=== PATIENT | male | born 1970 | race Two or more races ===

== ENCOUNTER 2024-04-22 02:26 | Emergency (ER) | payer MEDICAID ==
[~2024-04-22] VITALS: Ht 172.7 cm; Wt 73.6 kg
[2024-04-22 02:34] VITALS: TEMP 97.3
[2024-04-22] MEDS: THIAMINE 100 MG/ML 2 ML VIAL IVP ONE (03:08)
[2024-04-22] MEDS: KETOROLAC TROMETHAMINE 30 MG/ML VIAL IVP ONE (03:10)
[2024-04-22] MEDS: SODIUM CHLORIDE 0.9% 1,000 ML IV ONE (03:10)
[2024-04-22] MEDS: LIDOCAINE 1% 10 ML VIAL SQ ONE (03:10)
[2024-04-22] MEDS: HYDROGEN PEROXIDE 118 ML SOLUTION TP ONE (03:47)
[2024-04-22 05:41] VITALS: BP 106/71; PULSE 76; RESP 16
== END 2024-04-22 05:52 | disposition home or self-care (01) ==
LOC: EMS 02:26
DX: S11.81XA Laceration without foreign body of other specified part of neck, initial encounter (principal); S09.8XXA Other specified injuries of head, initial encounter; Y04.0XXA Assault by unarmed brawl or fight, initial encounter; Y93.89 Activity, other specified; Y92.89 Other specified places as the place of occurrence of the external cause; Y99.8 Other external cause status
CPT/HCPCS: 99285; 96374; 70450; 96361; 96375; 36415; 12011; 96372; G0480; J1885; J3411; J3490; J7030

== ENCOUNTER 2024-06-05 07:12 | Emergency (ER) | payer MEDICAID ==
[~2024-06-05] VITALS: Ht 172.7 cm; Wt 75.0 kg
[2024-06-05 07:16] VITALS: TEMP 98.1
[2024-06-05] MEDS ORDERED: IBUP-1554 PO (08:17)
[2024-06-05] MEDS ORDERED: ACET-66 PO (08:17)
[2024-06-05] MEDS: TRIAMCINOLONE ACETONIDE 40 MG/ML VIAL IARTIC ONE (08:30)
[2024-06-05] MEDS: KETOROLAC TROMETHAMINE 60 MG/2 ML VIAL IM ONE (08:31)
[2024-06-05 09:18] VITALS: BP 120/80; PULSE 82; RESP 18
== END 2024-06-05 09:21 | disposition home or self-care (01) ==
LOC: EMS 07:13
DX: S46.812A Strain of other muscles, fascia and tendons at shoulder and upper arm level, left arm, initial encounter (principal); X50.3XXA Overexertion from repetitive movements, initial encounter; Y93.89 Activity, other specified; Y92.89 Other specified places as the place of occurrence of the external cause; Y99.8 Other external cause status
CPT/HCPCS: 99283; 73030; 96372; J1885; J3301; 29240